=== PATIENT | female | born 1995 | race African-American/Black ===

== ENCOUNTER 2016-05-10 12:21 | Emergency (ER) | payer OTHER ==
[~2016-05-10 12:21] MED LIST: ALBUAER INH; IRON PO; SENNTAB23 PO
[2016-05-10 12:29] VITALS: BP 137/70; PULSE 62; TEMP 36.8; O2SAT 98; Ht 167.6 cm
--- NOTE | 2016-05-10 13:07 | DIAGNOSTIC IMAGING REPORT ---
RIGHT FOOT MIN 3 VIEWS ROUTINE CLINICAL HISTORY: right foot pain Right trauma COMPARISON: None. DISCUSSION: The bones and joint spaces appear intact. There is no evidence of fracture, dislocation or bony disease. There is no evidence for soft tissue swelling. IMPRESSION: Negative study. Electronically signed by: Frederick Archer M.D. 05/10/2016 1:06 PM Dictated Date/Time: 05/10/2016 1:06 PM
--- NOTE | 2016-05-10 13:07 | DIAGNOSTIC IMAGING REPORT ---
RIGHT ANKLE MIN 3 VIEWS ROUTINE CLINICAL HISTORY: Right ankle pain Right trauma COMPARISON: None. DISCUSSION: The bones and joint spaces appear intact. There is no evidence of fracture, dislocation or bony disease. There is no evidence for soft tissue swelling. IMPRESSION: Negative study. Electronically signed by: Frederick rAcher M.D. 05/10/2016 1:05 PM Dictated Date/Time: 05/10/2016 1:05 PM
--- NOTE | 2016-05-10 17:28 | EMERGENCY ROOM VISIT NOTE ---
ED Visit Note First contact with patient: 12:35 Chief complaint: Right ankle and foot pain. HPI: This 20-year-old -[place] female presents to the emergency room for evaluation of her right ankle and foot. The patient injured the ankle last night while walking in heels. She states she saw someone laying on the ground and went over to talk with them. There was a dog next to the patient that began barking and chasing her. She ran down some steps in her heels and inverted her ankle. Since that time, they have had persistent pain over the lateral portion of the ankle extending into the foot. They deny any numbness or tingling. Pain is worse with weight-bearing. They have been walking with a limp. no knee or hip pain. No pop or snap with injury. Treatment has consisted of ice provided in the ER. No recent history of significant ankle injury. Pain is 6/10. REVIEW OF SYSTEM: HEENT: No dizziness, visual problems, hearing loss, tinnitus. There is no difficulty swallowing and no oral lesions are present. PULMONARY: No cough, shortness of breath, sputum production or hemoptysis. CARDIOVASCULAR: No chest pain, palpitations, shortness of breath or peripheral edema. GASTROINTESTINAL: No diarrhea, constipation, nausea, vomiting, or abdominal pain. GENITOURINARY: No dysuria, frequency, urgency or nocturia. NEUROLOGIC: No weakness, muscle tenderness, epilepsy or history of neurological problems. MUSCULOSKELETAL: No history of joint tenderness/swelling. No history of arthritis or arthralgias. SKIN: No rashes or lesions. ENDOCRINE: No history of diabetes, thyroid disorders, abnormal hair growth. PAST MEDICAL HISTORY: Supplemental sheet was reviewed. Previous surgeries: None Medical history: Significant for previous ankle sprain and asthma Current medications: Albuterol Allergies: NKDA Family history: Noncontributory. Social history: Single. [employer] student. Positive EtOH use. PHYSICAL EXAM: Vitals: Reviewed and filed in patient's chart. Afebrile. General: Well-developed, well-nourished, young -[place] female, in obvious discomfort. No acute distress. She is sitting on a bed. Alert and oriented. Skin:Warm and dry with good turgor. No rashes or lesions. No erythema. The patient is not diaphoretic. No abrasions. Edema is present over the lateral ankle and into the dorsal foot. No ecchymosis. Musculoskeletal: Right ankle and foot evaluation reveals no pain with palpation across the knee or proximal tibia or fibula. There is pain with palpation over the lateral malleolus and the lateral ligaments. No pain over the medial malleolus or deltoid ligament. Achilles' tendon is palpated to its entirety and found to be intact and without defect. Normal Edwards test. No pain with palpation of the calcaneus or toes. There is discomfort with palpation of the fifth metatarsal base, midfoot, and lateral forefoot. Motor function to the toes is intact and unremarkable. Motor function to the ankle is intact but range of motion is limited by pain. Strength is 5/5 for resisted motion. Positive anterior drawer, negative calcaneal tilt. Neurologic: Gross sensation is intact across all aspects of the foot and ankle via soft touch. Peripheral pulses are 2+. Data: Radiographic images of the ankle and foot were obtained today and were reviewed by me as well as radiology. They are unremarkable for fracture or other bony abnormality. IMPRESSION: Right ankle sprain. PLAN: The patient was educated regarding today's findings. Conservative care measures were discussed. Patient was given an Rishi wrap for edema control and will use this for the next 5 days. Ankle gel splint was also applied and will be used for support for the next 3 weeks. It may be removed for bathing and sleep. It should be used for a few additional weeks for sporting events only. Crutches were fitted and crutch instruction was reviewed. Discontinue crutch use when she is able to walk without a limp. Weight-bear as tolerable. Gentle motion daily. Ice and elevate intermittently over the next 3 days, after which they may switch to moist heat. Lower leg should be elevated at night during sleep. Tylenol and ibuprofen every 6 hours as needed for discomfort. Sprain handout was provided. Return to the ER for any acute changes. Follow-up with their PCP or orthopedist if not improving in 5 to 7 days. She was reassured that I do not suspect tendon rupture or fracture. Current/Historical Medications Scheduled PRN Albuterol Sulfate (Proventil Hfa), 2 PUFFS INH UD PRN for SOB/Wheezing Allergies Coded Allergies: Apple (Unverified Allergy, Unknown, SWELLING OF MOUTH/LIPS, 05/10/16) Vital Signs Date Time Temp Pulse Resp B/P Pulse Ox O2 Delivery O2 Flow Rate FiO2 05/10/16 12:29 36.8 62 20 137/70 98 Room Air Departure Information Impression Primary Impression: Right ankle sprain Dispostion Home / Self-Care Condition GOOD Forms HOME CARE DOCUMENTATION FORM, MOTRIN USE, TYLENOL USE, IMPORTANT VISIT INFORMATION Patient Instructions My [facility] Additional Instructions Use crutches until you can walk without a limp- weight-bear as tolerable Ice and elevate intermittently x3 days, and then use moist heat Tylenol and ibuprofen every 6 hours as needed for pain Gentle motion daily See your PCP or orthopedist if not improving over 5-7 days Use gel splint at all times other than bathing and sleep for 4 weeks, and then use it for an additional 2 weeks for any sporting activity
== END 2016-05-10 13:44 | disposition home or self-care (01) ==
LOC: C.EDB 12:22 → C.EDD 13:44
DX: S93.401A Sprain of unspecified ligament of right ankle, initial encounter (principal); X50.0XXA Overexertion from strenuous movement or load, initial encounter; Y93.02 Activity, running; J45.909 Unspecified asthma, uncomplicated

== ENCOUNTER 2017-03-11 23:54 | Emergency (ER) | payer OTHER ==
[~2017-03-11] VITALS: Ht 170.2 cm; Wt 89.6 kg
[~2017-03-11 23:54] MED LIST changes: -IRON PO; -SENNTAB23 PO
[2017-03-11 23:55] VITALS: BP 120/75; PULSE 69; TEMP 36.6; O2SAT 100; Ht 170.2 cm; Wt 89.6 kg
[2017-03-12] MEDS ORDERED: DIPHTHERIA/TETANUS/PERTUSSIS 0.5 ML SYR/VIAL IM. ONE (00:15)
--- NOTE | 2017-03-12 00:37 | EMERGENCY ROOM VISIT NOTE ---
ED Visit Note First contact with patient: 23:58 CHIEF COMPLAINT: Body Fluid exposure HPI: This 21 yo presents to the Emergency Department with friend for evaluation of a body fluid exposure finger. 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 This is a work-related injury. The wound has already been cleansed. Bleeding is controlled. They deny numbness, tingling, or loss of motion. Source patient is not known. History of the source patient is not known at this time. They believe their tetanus is not up -to-date. Pain is 0/10. ALLERGIES: Apples MEDICATIONS: none PMH: none SOCIAL HISTORY: no drug use Physical Exam: VITALS: Nursing notes reviewed and vitals are stable. GENERAL: pleasant female, in no acute distress, well developed, well nourished. SKIN: Warm and dry with good turgor. no abrasions. There is a solitary puncture cassy present at the right 2nd finger pad. Bleeding is controlled. No edema. Capillary refill is 2+. MUSCULOSKELETAL: Patient has full active range of motion of the finger. Normal strength. NEURO: Gross sensation is intact across the finger. ED COURSE: I examined the patient. Patient was informed that is highly unlikely for her to contract HIV or hepatitis from urine. Her work is requesting though that hepatitis and HIV panel be drawn. Option of HIV, hepatitis C, and hepatitis B testing was discussed with the patient. The risks , benefits, purpose, and limitations of the tests were explained to the patient and all of their questions were answered. They elected to proceed. I did perform pretest counseling and the appropriate consent forms were signed. Patient was given information on prevention of exposure and transmission as well as hospital confidentiality. Blood exposure handout was provided. The patient's blood was drawn. Risks and benefits of HIV prophylaxis were discussed with the patient. The patient elected to no HIV prophylaxis at this time. They will follow-up with employee health. Wound care instructions were provided. The patient was discharged in stable condition. Impression: #1 Body fluid exposure #2 work related Injury #3 Finger puncture wound Plan: as below Current/Historical Medications Scheduled PRN Albuterol Sulfate (Proventil Hfa), 2 PUFFS INH UD PRN for SOB/Wheezing Allergies Coded Allergies: Apple (Unverified Allergy, Unknown, SWELLING OF MOUTH/LIPS, 12/22/17) Vital Signs Date Time Temp Pulse Resp B/P (MAP) Pulse Ox O2 Delivery O2 Flow Rate FiO2 03/11/17 23:55 36.6 69 16 120/75 100 Room Air Laboratory Results Test 03/12/17 00:21 Medications Administered Medications (Trade) Dose Ordered Sig/Malinda Route Start Time Stop Time Status Last Admin Dose Admin Diphtheria/ Pertussis/Tetanus Vacc (Adacel Inj) 0.5 ml ONCE ONCE IM. 03/12/17 00:15 03/12/17 00:16 DC 03/12/17 00:25 0.5 ML Departure Information Referrals No Doctor, Assigned (PCP) Patient Instructions [facility]
[2017-03-12 01:21] LABS: HEPATITIS B AB POS
== END 2017-03-12 00:30 | disposition home or self-care (01) ==
LOC: C.EDB 23:55
DX: Z77.21 Contact with and (suspected) exposure to potentially hazardous body fluids (principal); W46.1XXA Contact with contaminated hypodermic needle, initial encounter; Y99.0 Civilian activity done for income or pay; Y92.198 Other place in other specified residential institution as the place of occurrence of the external cause

== ENCOUNTER 2017-06-29 00:17 | Emergency (ER) | payer OTHER ==
[~2017-06-29] VITALS: Ht 170.2 cm; Wt 91.0 kg
[2017-06-29 00:30] VITALS: TEMP 37
[2017-06-29] MEDS ORDERED: SODIUM CHLORIDE 0.9% 1000ML 1,000 ML IV STA (01:20)
[2017-06-29 01:40] VITALS: Ht 170.2 cm; Wt 91.0 kg
[2017-06-29] MEDS ORDERED: NUVVR VAGRING (01:42)
[2017-06-29 01:55] LABS: BASO % 0.5 %; BASO ABS # 0.04 K/uL (0-0.2); EOS % 7.7 %; EOS ABS # 0.58 K/uL (0-0.5); HEMATOCRIT 37.9 % (37-47); HEMOGLOBIN 12.6 g/dL (12.0-16.0); LYMPH % 42.4 %; LYMPH ABS # 3.21 K/uL (1.2-3.4); MEAN CELL VOLUME 85.4 fL (80-100); MEAN CORPUSCULAR HEMOGLOBIN 28.4 pg (25-34); MEAN CORPUSCULAR HGB CONC 33.2 g/dl (32-36); MEAN PLATELET VOLUME 10.4 fL (7.4-10.4); MONO % 6.1 %; MONO ABS # 0.46 K/uL (0.11-0.59); NEUT % 43.3 %; NEUT ABS # 3.28 K/uL (1.4-6.5); PLATELET COUNT 345 K/uL (130-400); RED CELL DISTRIBUTION WIDTH SD 40.8 fL (36.4-46.3); WHITE BLOOD COUNT 7.57 K/uL (4.8-10.8)
[2017-06-29 02:19] LABS: PTT PATIENT 27.5 SECONDS (21.0-31.0)
[2017-06-29 02:23] LABS: ALBUMIN 3.3 gm/dl (3.4-5.0); CALCIUM 8.8 mg/dl (8.5-10.1); CREATININE 1.09 mg/dl (0.60-1.20); POTASSIUM 3.9 mmol/L (3.5-5.1)
[2017-06-29 02:26] LABS: TOTAL PROTEIN 7.6 gm/dl (6.4-8.2)
--- NOTE | 2017-06-29 05:04 | EMERGENCY ROOM VISIT NOTE ---
History First contact with patient: 00:49 Chief Complaint: ED VAG BLEEDING Stated Complaint: CERVICAL PAINS,SHEDDING,BLEEDING,CLOTTING History of Present Illness The patient is a 21 year old female who presents to the Emergency Room with complaints of vaginal bleeding with pelvic pain for the past few days steadily gotten worse who had an 05 June in [place]. Patient was 11 weeks along. She had a D and E. Patient denies complications with the procedure. This was her first . Patient states the bleeding seem to be tapering off getting but got much worse the other day. She has gone through a few pads today. She currently is using the NuvaRing. Patient states symptoms got slightly worse after she had vaginal stimulation from her boyfriend. Patient denies heavy vaginal bleeding, flank pain, urinary symptoms, vaginal odor, other vaginal discharge, fever, chills, nausea, vomiting, weakness. Review of Systems An 10 system review of systems was completed with positives and pertinent negatives listed in the HPI. Past Medical/Surgical History None Social History Smoking Status: Never Smoker Marital Status: in relationship Current/Historical Medications Scheduled Etonogestrel/Ethinyl Estradiol (Nuvaring), 1 EA VAGRING MONTHLY Scheduled PRN Albuterol Sulfate (Proventil Hfa), 2 PUFFS INH UD PRN for SOB/Wheezing Physical Exam Vital Signs Date Time Temp Pulse Resp B/P (MAP) Pulse Ox O2 Delivery O2 Flow Rate FiO2 06/29/17 02:46 78 18 100/60 100 Room Air 06/29/17 00:30 37.0 63 20 118/66 99 Room Air Physical Exam VITALS: Vitals are noted on the nurse's note and reviewed by myself. Vital signs stable. GENERAL: Pleasant female, in no acute distress, nondiaphoretic, well-developed well-nourished. SKIN: Capillary reflex less than 2 seconds. HEENT: Normocephalic. PERRLA. EOMI. Nares patent. Mucous membranes moist. Neck is supple without nuchal rigidity. HEART: Regular rate and rhythm without murmurs gallops or rubs. LUNGS: Clear to auscultation bilaterally without wheezes, rales or rhonchi. No retractions or accessory muscle use. ABDOMEN: Positive bowel sounds x 4. Normal tympanic percussion. Soft, nontender, without masses or organomegaly. Jeronimo sign negative. No guarding or rebound tenderness. No CVA tenderness exam: Normal external female genitalia, minimal blood in the vault with the NuvaRing present, os is closed, no CMT tenderness, cultures taken and sent. Vfx Artist present MUSCULOSKELETAL: No gross musculoskeletal defects. NEURO: Patient was alert and oriented to person place and time. Normal sensation to light and sharp touch. No focal neurological deficits. Medical Decision & Procedures Laboratory Results 06/29/17 01:44 Red Blood Count 4.44, Mean Corpuscular Volume 85.4, Mean Corpuscular Hemoglobin 28.4, Mean Corpuscular Hemoglobin Concent 33.2, Mean Platelet Volume 10.4, Neutrophils (%) (Auto) 43.3, Lymphocytes (%) (Auto) 42.4, Monocytes (%) (Auto) 6.1, Eosinophils (%) (Auto) 7.7, Basophils (%) (Auto) 0.5, Neutrophils # (Auto) 3.28, Lymphocytes # (Auto) 3.21, Monocytes # (Auto) 0.46, Eosinophils # (Auto) 0.58, Basophils # (Auto) 0.04 06/29/17 01:44 Test 06/29/17 01:20 06/29/17 01:44 06/29/17 02:44 06/29/17 02:59 White Blood Count 7.57 K/uL (4.8-10.8) Red Blood Count 4.44 M/uL (4.2-5.4) Hemoglobin 12.6 g/dL (12.0-16.0) Hematocrit 37.9 % (37-47) Mean Corpuscular Volume 85.4 fL (80-100) Mean Corpuscular Hemoglobin 28.4 pg (25-34) Mean Corpuscular Hemoglobin Concent 33.2 g/dl (32-36) Platelet Count 345 K/uL (130-400) Mean Platelet Volume 10.4 fL (7.4-10.4) Neutrophils (%) (Auto) 43.3 % Lymphocytes (%) (Auto) 42.4 % Monocytes (%) (Auto) 6.1 % Eosinophils (%) (Auto) 7.7 % Basophils (%) (Auto) 0.5 % Neutrophils # (Auto) 3.28 K/uL (1.4-6.5) Lymphocytes # (Auto) 3.21 K/uL (1.2-3.4) Monocytes # (Auto) 0.46 K/uL (0.11-0.59) Eosinophils # (Auto) 0.58 K/uL (0-0.5) Basophils # (Auto) 0.04 K/uL (0-0.2) RDW Standard Deviation 40.8 fL (36.4-46.3) RDW Coefficient of Variation 13.0 % (11.5-14.5) Immature Granulocyte % (Auto) 0.0 % Immature Granulocyte # (Auto) 0.00 K/uL (0.00-0.02) Prothrombin Time 10.0 SECONDS (9.0-12.0) Prothromb Time International Ratio 1.0 (0.9-1.1) Activated Partial Thromboplast Time 27.5 SECONDS (21.0-31.0) Partial Thromboplastin Ratio 1.1 Anion Gap 7.0 mmol/L (3-11) Est Creatinine Clear Calc Drug Dose 93.0 ml/min Estimated GFR () 82.9 Estimated GFR (Non- 71.5 BUN/Creatinine Ratio 9.0 (10-20) Calcium Level 8.8 mg/dl (8.5-10.1) Total Bilirubin 0.2 mg/dl (0.2-1) Aspartate Amino Transf (AST/SGOT) 10 U/L (15-37) Alanine Aminotransferase (ALT/SGPT) 14 U/L (12-78) Alkaline Phosphatase 52 U/L (45-117) Total Protein 7.6 gm/dl (6.4-8.2) Albumin 3.3 gm/dl (3.4-5.0) Globulin 4.3 gm/dl (2.5-4.0) Albumin/Globulin Ratio 0.8 (0.9-2) Human Chorionic Gonadotropin, Qual POS (NEG) Urine Color YELLOW Urine Appearance CLEAR (CLEAR) Urine pH 5.5 (4.5-7.5) Urine Specific [place] 1.009 (1.000-1.030) Urine Protein NEG (NEG) Urine Glucose (UA) NEG (NEG) Urine Ketones NEG (NEG) Urine Occult Blood 2+ (NEG) Urine Nitrite NEG (NEG) Urine Bilirubin NEG (NEG) Urine Urobilinogen NEG (NEG) Urine Leukocyte Esterase NEG (NEG) Urine WBC (Auto) 1-5 /hpf (0-5) Urine RBC (Auto) 0-4 /hpf (0-4) Urine Hyaline Casts (Auto) 1-5 /lpf (0-5) Urine Epithelial Cells (Auto) 5-10 /lpf (0-5) Urine Bacteria (Auto) NEG (NEG) Human Chorionic Gonadotropin, Quant 42 mIU/mL Medications Administered Medications (Trade) Dose Ordered Sig/Malinda Route Start Time Stop Time Status Last Admin Dose Admin Sodium Chloride 1,000 ml @ 999 mls/hr Q1H1M STAT IV 06/29/17 01:20 06/29/17 02:20 DC 06/29/17 01:49 999 MLS/HR ED Course Prior records/ancillary studies reviewed. Triage Nursing notes reviewed. The patient's history was concerning for vaginal bleeding and abdominal pain. Differential diagnosis: Etiologies such as retained products of conception, endometritis, postsurgical complication, ectopic , dysfunction uterine bleeding, bleeding dyscrasia, trauma, infection, as well as others were entertained. Physical examination: As above. Vitals signs revealed stable. ER treatment provided: IV fluids On reassessment the patient felt better. Diagnostic interpretation by me: CBC, coagulation studies, and chemistries were unremarkable. Urine test was +. Urinalysis revealed no sign of infection. Quantitative hCG was 42 Imaging studies: Ultrasound as above US PELVIC/ENDOVAG: Uterus normal in size and echotexture. The endometrium measures 5 mm thickness. There is a hypoechoic focus within the endometrial canal which may represent fluid or blood clot/products. Bilateral ovaries are unremarkable. No evidence of torsion. No identifiable free fluid in the pelvic cul-de-sac. Radiologist: Jorden Gonzalez DO Consultation: A consultation was placed with the clinic lpn physician, . The case was discussed and diagnostics were reviewed. She recommends discharge with outpatient follow-up. This appears to be consistent with abnormal uterine bleeding most likely related to recent . Patient was advised to follow-up with DISTRICT CLAIMS MANAGER for better options for her control and for trending down of her hormone level. Patient had no signs of infection on exam. She is well-appearing. She is tolerating fluids. She is advised to follow-up with DISTRICT CLAIMS MANAGER in a day or 2 here in the ER sooner for heavy bleeding, fevers, pain, worsening signs or symptoms or as needed. By the evaluation outlined above emergent etiologies such as bleeding dyscrasia, ectopic , trauma, as well as others were deemed relatively unlikely. The pt informed about the findings as listed above. All questions were answered and pleased with the treatment. Return instructions were outlined and the patient was discharged in stable condition. Referral: The patient was referred to DISTRICT CLAIMS MANAGER for follow-up in 2 to 3 days for a recheck of her current condition. Case reviewed with my attending The chart was completed utilizing [employer] Speech voice recognition software. Grammatical errors, random word insertions, pronoun errors, and incomplete sentences are an occassional consequence of this system due to software limitations, ambient noise, and hardware issues. Any formal questions or concerns about the content, text, or information contained within the body of this dictation should be directly addressed to the physician academic assistant for clarification. Medical Decision As above Medication Reconcilliation Current Medication List: was personally reviewed by me Blood Pressure Screening Patient's blood pressure: Normal blood pressure Impression Primary Impression: Dysfunctional uterine bleeding Departure Information Dispostion Home / Self-Care Condition GOOD Referrals No Doctor, Assigned (PCP) Patient Instructions My [facility] Additional Instructions Rest. Stay well hydrated. No strenuous activity or intercourse until cleared by DISTRICT CLAIMS MANAGER. Acetaminophen(Tylenol) may be used for fever or pain. Use 1000mg every six hours as needed. Avoid using more than 3000mg in a 24 hour period. Rest and drink plenty of fluids as tolerated. Continue current medications. Return to the ER immediately for worsening or persistent heavy vaginal bleeding , abdominal pain, vomiting, fevers, chest pains, difficulty breathing, worsening of your condition, or as needed. Follow up with your DISTRICT CLAIMS MANAGER in 2-3 days for a recheck of your current condition.
[2017-06-29 05:06] VITALS: BP 100/60; PULSE 73; O2SAT 99
--- NOTE | 2017-06-29 07:44 | DIAGNOSTIC IMAGING REPORT ---
TRANSVAG-FEMALE PELVIS, PELVIC COMPLETE NON OB CLINICAL HISTORY: 21 years-old Female presenting with 17 Mar, increase pain/bleeding, , last menstrual period end of February, continued cramping and heavy bleeding. TECHNIQUE: Real-time grayscale and color and spectral Doppler ultrasound imaging of the pelvis was performed first using a transabdominal probe and subsequently transvaginal for better characterization. COMPARISON: None. FINDINGS: Uterus: Normal. Anteverted. The uterus measures 9.4 x 4.1 x 5.9 cm. Endometrial stripe measures 5 mm in thickness. Endometrial cavity contains a small amount of hypoechoic avascular material, likely blood products. No significant focal color Doppler flow within the endometrium or endometrial cavity to suggest retained products of conception. Cervix normal. Right adnexa: Right ovary normal. Right ovary measures 2.5 x 1.7 x 1.9 cm. Normal color Doppler flow and arterial and venous waveforms within the ovarian parenchyma. Trace fluid in the right adnexa. Left adnexa: Left ovary normal. Left ovary measures 2.3 x 1.1 x 2.6 cm. Normal color Doppler flow and arterial and venous waveforms within the ovarian parenchyma. Other: Trace free fluid, likely physiologic. IMPRESSION: 1. Hypoechoic avascular material in the endometrial cavity most consistent with blood products. No significant focal color Doppler flow within the endometrium or endometrial cavity to suggest retained products of conception. 2. No evidence of ovarian torsion. Electronically signed by: Eldon Prescott M.D. 06/29/2017 7:42 AM Dictated Date/Time: 06/29/2017 7:24 AM
--- NOTE | 2017-07-02 16:50 | Pharmacy Progress Note ---
ED Pharmacist Culture FollowUp Date of Service: Jul 02, 2017. 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 Per Dr. Sheffield, july call in fluconazole 150mg PO X 1. I attempted to contact the patient twice today but was unsuccessful. I did leave a message to return call.
== END 2017-06-29 05:12 | disposition home or self-care (01) ==
LOC: C.EDB 00:18 → C.EDA 05:12
DX: N93.8 Other specified abnormal uterine and vaginal bleeding (principal); Z98.890 Other specified postprocedural states; Z97.5 Presence of (intrauterine) contraceptive device